=== PATIENT | male | born 1960 | race Caucasian/White ===

== ENCOUNTER 2024-11-30 00:49 | Emergency (ER) | payer MEDICAID, SELFPAY ==
[2024-11-30 00:49] VITALS: BP 170/95; PULSE 84; RESP 20; TEMP 36.9; O2SAT 97
--- NOTE | 2024-11-30 01:52 | EDNOTE_ITS ---
<Statement entered by Rachael Ng MD - 11/30/24 18:32> As co-signing physician, I was present and available for consult prn. I concur with the plan and care as documented by the midlevel provider. ED Animal Bite RME/HPI General Chief Complaint: Animal Bite Stated Complaint: Dog Bite 11/15 Time Seen by Provider: 11/30/24 01:48 Arrival date/time: 11/30/24 00:49 64M with history of homelessness and drug use presents to ED with dog bite on LLE from 11/15/24. Patient has not had a tetanus shot in the past 5 years. Limitations: no limitations Related Data Previous Rx's ?Medication ?Instructions ?Recorded amoxicillin 875 mg-potassium 1 tab PO BID 14 days #28 tabs 11/30/24 clavulanate 125 mg tablet Allergies Allergy/AdvReac Type Severity Reaction Status Date / Time No Known Allergies Allergy Verified 03/20/23 08:18 Review of Systems Review of Systems Systems Reviewed: All systems reviewed, normal except as documented Constitutional Constitutional: Reports system reviewed and no additional complaints, except as documented, Denies fever(s) and Denies headache(s) ENT Ears, Nose, Mouth, and Throat: Denies disequilibrium and Denies headache(s) Cardiovascular Cardiovascular: Reports system reviewed and no additional complaints, except as documented, Denies chest pain and Denies dyspnea Respiratory Respiratory: Reports system reviewed and no additional complaints, except as documented, Denies cough and Denies dyspnea Gastrointestinal Gastrointestinal: Reports system reviewed and no additional complaints, except as documented, Denies abdominal pain, Denies nausea and Denies vomiting Integumentary/Breasts Skin/Breast: Reports as per HPI and Reports skin pain Neurologic Neurologic: Reports system reviewed and no additional complaints, except as documented, Denies confusion, Denies disequilibrium and Denies headache(s) Psychiatric Psychiatric: Denies confusion Past Medical History Social History SMOKING STATUS: Never smoker ED Exam General Limitations: Present no limitations General appearance: Present alert and in no apparent distress Head Head exam: Present atraumatic Eye Eye exam: Present normal appearance, PERRL and EOMI ENT ENT exam: Present normal exam, normal oropharynx and mucous membranes moist Neck Neck exam: Present normal inspection, full ROM and trachea midline Chest Chest inspection: Present normal inspection and symmetric chest wall rise Respiratory Respiratory exam: Present normal lung sounds bilaterally Cardiovascular Cardiovascular exam: Present regular rate, normal rhythm and normal heart sounds Abdominal Exam Abdominal exam: Present soft and normal bowel sounds Extremities Exam Extremities exam: Present full ROM Expanded Lower Extremity Exam Lower leg exam: Present full ROM (L), tenderness, swelling and erythema Back Exam Back exam: Present normal inspection and full ROM Neurological Exam Neurological exam: Present alert, oriented X3 and CN II-XII intact Psychiatric Psychiatric exam: Present normal affect and normal mood Skin Skin exam: Present warm, dry, intact and normal color Course Quality Measures none Orders Category Date Time Status Amoxicillin/Pot Clav 875 [Augmentin 875] Med 11/30/24 01:48 Discontinued 1 tab PO X1 ONE TET,DIP/PERT AC (Adult)-Tdap [Boostrix Adult (Tdap) Med 11/30/24 01:48 Discontinued Vacc] 0.5 ml IMI .ONCE ONE Vital Signs Vital signs: Vital Signs Temperature 98.4 F 11/30/24 00:49 Pulse Rate 84 11/30/24 00:49 Respiratory Rate 20 11/30/24 00:49 Blood Pressure 170/95 H 11/30/24 00:49 Pulse Oximetry (%) 97 11/30/24 00:49 Oxygen Delivery Method Room Air 11/30/24 00:49 O2 at 97% on RA and WNLs Animal Bite MDM Narrative MDM Narrative:: 64M with history of homelessness and drug use presents to ED with dog bite on LLE from 11/15/24. Patient has not had a tetanus shot in the past 5 years. Physical exam reveals LLE redness, swelling, and tenderness. Patient is afebrile, calm, and alert. Meds given. Patient data External records reviewed:: [facility] previous records Clinical information provided by:: patient Social determinants that could affect healthcare access:: housing Patient has the following chronic illnesses:: homelessness and drug use How is presenting disease/condition affected by chronic disease/condition?: no chronic disease Evaluation data The following diagnostics were reviewed and interpreted by me:: other (specify) (none) Lab and/or radiology exams considered but not ordered:: not ordered Interpretation Summary: n/a Medications / Prescriptions Medications or Prescriptions considered but not ordered:: ordered Medication administrations:: Medication Administration History Discontinued Medications Amoxicillin/Clavulanate Potassium (Amoxicillin/Pot Clav 875 Tablet) 1 tab PO X1 ONE Stop: 11/30/24 01:49 Diphtheria/Tetanus/Acell Pertussis (Diphth,Pertuss(Acell),Tet Vac 0.5 Ml Syr- Adult) 0.5 ml IMi .ONCE ONE Stop: 11/30/24 01:49 above Consultations Consultation(s) initiated? (list below): No Diagnosis Differential diagnosis animal bite: bite by animal, dog bite, rabies contact and other (cellulitis) Most likely diagnosis given after review of the tests above:: cellulitis and dog bite Admission Indicated Admission indicated?: not indicated Admission Request Was there a request for admission?: No Disposition Plan Disposition Plan: Discharge Discharge Attestation Discharge Attestation: The patient and all family members were given an opportunity to ask questions and understood the discharge instructions. Discharge instructions specifically effects, indications for sooner follow up or return to the emergency department, and the expected course of current diagnosis. Patient condition: Stable Discharge Plan Plan Patient Disposition: HOME (Self Care) Discharge Disposition comment: Stable Prescriptions/Referrals Prescriptions/Med Rec: New amoxicillin-pot clavulanate 875-125 mg tablet 1 tab PO BID 14 Days Qty: 28 0RF Referrals: No Primary/Family,Physician [Primary Care Provider] - In 1 week Problem List Clinical Impression: Dog bite, Cellulitis Patient/Caregiver Discharge Instructions Education Materials: ED Cellulitis, ED Dog Bite Additional Instructions: Please follow-up with PCP within 24-48 hours and return immediately if symptoms worsen. Print Language: Italian Stand Alone Forms: Patient Portal Info Letter JOSE ANTONIO/DOTTIE Supervising Physician JOSE ANTONIO/DOTTIE Supervising Physician: Dr. Ng
[2024-11-30] MEDS: AMOXICILLIN/POT CLAV 875 TABLET 1 TAB PO (01:56)
[2024-11-30] MEDS: DIPHTH,PERTUSS(ACELL),TET VAC 0.5 ML SYR- ADULT IMi (01:56)
== END 2024-11-30 02:00 | disposition home or self-care (01) ==
PROVIDERS: Emergency Provider Emergency Medicine
DX: S81.852A Open bite, left lower leg, initial encounter (principal); L03.116 Cellulitis of left lower limb; W54.0XXA Bitten by dog, initial encounter; Z23 Encounter for immunization
CPT/HCPCS: 90471; 90715; 99282; A9270

== ENCOUNTER 2025-03-19 21:47 | Emergency (ER) | payer MEDICAID, SELFPAY ==
[2025-03-19 21:48] VITALS: BMI 31.6
[2025-03-19 22:29] VITALS: BP 175/99; PULSE 97; RESP 20; TEMP 36.7; O2SAT 95
--- NOTE | 2025-03-19 22:34 | XR_ITS ---
Examination: Foot, right, 3 views Technique: AP, oblique, lateral views foot, 3 views Date and time of exam: March 11, 2025 10:58 PM Indications: Redness swelling and pain involving the right foot this week Findings: Chronic subluxation second metatarsophalangeal joint Periosteal new bone formation at the bases of the second and third metatarsals Marked soft tissue swelling dorsum of the foot Pes planus Impression: Osteomyelitis bases of the second and third metatarsals Recommend MRI foot without contrast follow-up to assess full extent of osteomyelitis
--- NOTE | 2025-03-19 22:34 | XR_ITS ---
Examination: Duplex scan of the lower extremity, unilateral right Date and time of exam: March 19, 2025 11:13 PM Indications: Right foot swelling and discharge 2 days Technique: Duplex scan of the extremity veins using B-mode/grayscale imaging and Doppler spectral analysis and color flow Attention is directed to internal echogenicity, compression and augmentation involving these veins, color flow assessment, spectral analysis Findings: No flow visualized in the right posterior tibial vein, no diagnostic visualization of retroperitoneal or greater saphenous veins secondary to severe edema Impression: Limited study No flow noted in the right posterior tibial vein consistent with occlusive thrombus
--- NOTE | 2025-03-19 22:35 | PD.EDRME ---
Rapid Medical Screening Exam RME Arrival date/time: 03/19/25 21:47 This is a case of 65-year-old male who came into the emergency room due to right foot pain with blister and marked swelling tenderness on the right lower extremity is unable to walk worsening of the symptoms this patient decided to start consult here in the emergency room Chief Complaint: Extremity Problem,Nontraumatic Time Seen by Provider: 03/19/25 22:29 Vital signs: Vital Signs Temperature 98.1 F 03/19/25 22:29 Pulse Rate 97 03/19/25 22:29 Respiratory Rate 20 03/19/25 22:29 Blood Pressure 175/99 H 03/19/25 22:29 Pulse Oximetry (%) 95 03/19/25 22:29 Oxygen Delivery Method Room Air 03/19/25 22:29
--- NOTE | 2025-03-20 00:18 | XR_ITS ---
Examination: Arterial duplex lower extremity study, right lower extremity unilateral Date and time of exam: March 20, 2025, 0054 hrs. Indications: Right foot swelling and nonhealing blisters beginning 2 days ago Findings: Duplex sonographic imaging of the lower extremity arteries using B-mode/Lugo scale imaging and Doppler spectral analysis and color flow. Right common femoral artery demonstrates biphasic flow. Right superficial femoral artery demonstrates biphasic flow. Right popliteal artery demonstrates biphasic flow. Right posterior tibial artery demonstrated biphasic flow. Right dorsalis pedis artery demonstrated monophasic flow Impression: Suspicious for peripheral obstructive arterial disease, consider correlation with CTA abdominal aorta iliofemoral runoff follow-up post intravenous contrast
[2025-03-20 00:56] VITALS: BMI 31.6
[2025-03-20] MEDS: SODIUM CHLORIDE 0.9% 500 ML 500 ML 250 ML IV (01:00)
[2025-03-20] MEDS: ONDANSETRON INJ 2 MG/ML INJ 2 ML 4 MG IVP ×2 (01:05→02:37)
[2025-03-20] MEDS: MORPHINE SULF INJ 4 MG/ML VIAL IVP ×2 (01:05→02:37)
--- NOTE | 2025-03-20 01:16 | PD.EDEXREM ---
ED Extremity Problem RME/HPI General Chief complaint: Extremity Problem,Nontraumatic Stated complaint: BLISTERS AND SWELLING TO RIGHT FOOT Time Seen by Provider: 03/19/25 22:29 Arrival date/time: 03/19/25 21:47 RME / HPI RME / HPI Narrative: 03/19/25 21:47 This is a case of 65-year-old male who came into the emergency room due to right foot pain with blister and marked swelling tenderness on the right lower extremity is unable to walk worsening of the symptoms this patient decided to start consult here in the emergency room DR. REDDY MAIN ED EVALUATION: Progressive painful swelling extending from dorsum of right foot to level of the knee for 3 days duration. Reports progressive painful simulation and weakness involving right ankle of approximately 48 hours. There has been immergence of large bullae about the leg extending to the foot. No fever, no chills, no vomiting, or diarrhea. PMH: Negative for DM, HTN, Thyroid disease. PSH: Non-contributory. Social: Denies tobacco, alcohol, or illicit drug abuse. Related Data Allergies Allergy/AdvReac Type Severity Reaction Status Date / Time No Known Allergies Allergy Verified 03/20/23 08:18 Review of Systems Review of Systems Systems Reviewed: All systems reviewed, normal except as documented Past Medical History Social History SMOKING STATUS: Current every day smoker ED Exam Narrative Physical exam: GEN. APPEARANCE: The patient is alert awake oriented X-3 in no distress, but chronically ill-appearing. Patient has good eye contact. Patient is cooperative. C/o RLE pain and swelling. VITALS: All vitals were reviewed and the pulse ox is 95% on room air which is normal according to my interpretation. HEENT: Normocephalic, atraumatic. Pupils are equal and reactive. Oral mucosa is moist. Patent Nares NECK: Supple, nontender, no thyromegaly, no meningismus, no JVD, no step offs CHEST: Symmetrical, atraumatic, and with equal expansion , Nontender on palpation no deformity and no crepitus. CARDIOVASCULAR: Heart regular rhythm no murmur or gallop rub or extra beats. LUNGS: Clear to auscultation bilaterally with symmetrical chest rise. No laboring tachypnea or wheezing. No intercostal subcostal retraction. No rales and no rhonchi. ABDOMEN: Soft, flat, nontender to palpation, no guarding or rebound tenderness. There are no abnormal masses palpated. Active and normal bowel sounds. EXTREMITIES: See Below. SKIN: Warm and dry, no jaundice or rashes noted. MUSCULOSKELETAL: No lubar or midline bony tenderness. There is no CVA tenderness. No paraspinal muscle spasm or tenderness. NEURO: Patient is KONG x 4, Cranial nerves II through XII grossly intact. There is no focal neurologic deficits noted. GCS is 15, PNS and FLAG MAKER appear grossly intact. PSYCHIATRIC: Patient is in normal mood and affect, cooperative, no SI or HI or hallucinations. RLE: 3+ circumferential edema about the foot extending to the proximal leg, scattered bullae noted throughout, dorsalis pedis pulses intact, compartments of the leg are tense, patient has inability to flex and dorsiflex the foot, sensation grossly intact. Course Quality Measures none Orders Category Date Time Status Notify provider NOW Care 03/20/25 00:31 Active US arterial duplex LE RT Stat Exams 03/20/25 00:18 Taken US venous doppler LE RT Stat Exams 03/19/25 22:34 Completed XR chest 1V post procedure Stat Exams 03/20/25 03:18 Taken XR foot comp RT min 3V Stat Exams 03/19/25 22:34 Completed CBC Stat Lab 03/19/25 22:34 Completed CMP [Comprehensive Metabolic Panel] Stat Lab 03/19/25 22:34 Completed Partial Thromboplastin Time AM DRAW Lab 03/22/25 05:00 Ordered Partial Thromboplastin Time Q6H Lab 03/20/25 01:14 Completed Partial Thromboplastin Time Q6H Lab 03/20/25 06:45 Ordered Partial Thromboplastin Time Q6H Lab 03/20/25 12:45 Ordered Partial Thromboplastin Time Q6H Lab 03/20/25 18:45 Ordered Prothrombin Time with INR Stat Lab 03/20/25 01:14 Completed Heparin Inj Med 03/20/25 00:30 Discontinued 8,000 unit IV X1 ONE Heparin/D5w 25K 250 ML Ivpb [Heparin in D5w Ivpb] Med 03/20/25 00:30 Active 25,000 unit in 250 ml IV 18 mls/hr Morphine* Inj Med 03/20/25 00:20 Discontinued 4 mg IVP X1 ONE Morphine* Inj Med 03/20/25 02:25 Discontinued 4 mg IVP X1 ONE Ondansetron Inj [Zofran Inj] Med 03/20/25 00:20 Discontinued 4 mg IVP X1 ONE Ondansetron Inj [Zofran Inj] Med 03/20/25 02:25 Discontinued 4 mg IVP X1 ONE Piper/Tazo Inj [Zosyn Inj] 4.5 gm Med 03/20/25 01:14 Pending Sodium Chloride 0.9% (Pop) [NS 0.9% mini bag] 100 ml IV Q6HR Piper/Tazo Inj [Zosyn Inj] 4.5 gm Med 03/20/25 06:00 Active Sodium Chloride 0.9% (Pop) [NS 0.9% mini bag] 100 ml IV X1 Sodium Chloride 0.9% 500 ml [Ns] 500 ml Med 03/20/25 00:18 Discontinued IV 250 mls/hr Vancomycin Inj 1,500 mg Med 03/20/25 01:16 Active Sterile Water 30 ml Sodium Chloride 0.9% Vial [NS Vial] 20 ml Sodium Chloride 0.9% 250 ml [Ns] 250 ml IV X1 Vital Signs Vital signs: Vital Signs Temperature 98.1 F 03/19/25 22:29 Pulse Rate 97 03/19/25 22:29 Respiratory Rate 20 03/19/25 22:29 Blood Pressure 175/99 H 03/19/25 22:29 Pulse Oximetry (%) 95 03/19/25 22:29 Oxygen Delivery Method Room Air 03/19/25 22:29 Extremity Problem MDM Narrative MDM Narrative:: Scribe Attestation: Chiquita King am scribing for and in the presence of Dr. Reddy. Provider Notation: Although this document has been carefully reviewed, there may still be some phonetic and other typographical errors. These errors are purely grammatical due to imperfections in the software program and should not be construed in any way to compromise the substance of the patient's medical care during this visit. Progressive painful swelling extending from dorsum of right foot to level of the knee for 3 days duration. Reports progressive painful simulation and weakness involving right ankle of approximately 48 hours. Please see PE findings. Laboratory markers are currently pending. Underwent Doppler US which demonstrates venous occlusion of the right posterior tibial vein, additional veins difficult to assess due to severe interstitial edema. Arterial doppler demonstrated grade 1 flow at the level of the ankle/foot. Patient was anticoagulated. Routine x-rays of the foot obtained demonstrated osteomyelitis of the second and third metatarsal. Placed on furniture installer, IV was established, received IV imperic ABX, low-dose narcotic analgesics/anti-emetics. High clinical suspicion of compartment syndrome. Patient's symptoms have been ongoing for at least 48 hours. Peripheral pulses intact. Will likely refer to tertiary facility for consideration of fasciotomy. Patient data External records reviewed:: [facility] previous records (Reviewed prior ED records from 11/30/24. Patient was seen for Cellulitis.) Clinical information provided by:: patient Social determinants that could affect healthcare access:: none Patient has the following chronic illnesses:: None reported How is presenting disease/condition affected by chronic disease/condition?: no chronic disease Evaluation data The following diagnostics were reviewed and interpreted by me:: lab results and radiology exam(s) Lab and/or radiology exams considered but not ordered:: None Interpretation Summary: RADIOLOGY Foot X-Ray: Findings: Chronic subluxation second metatarsophalangeal joint Periosteal new bone formation at the bases of the second and third metatarsals Marked soft tissue swelling dorsum of the foot Pes planus Impression: Osteomyelitis bases of the second and third metatarsals Recommend MRI foot without contrast follow-up to assess full extent of osteomyelitis Venous Doppler Study: Findings: No flow visualized in the right posterior tibial vein, no diagnostic visualization of retroperitoneal or greater saphenous veins secondary to severe edema Impression: Limited study No flow noted in the right posterior tibial vein consistent with occlusive thrombu Duplex Scan Lower Extremity Artery: Pending official radiology report. Medications / Prescriptions Medications or Prescriptions considered but not ordered:: None Medication administrations:: Medication Administration History Heparin Sodium/Dextrose (Heparin In D5w Ivpb) 25,000 unit in 250 mls @ 18 mls/hr IV .[id number] KELLY; Protocol Stop: 04/03/25 00:29 Last Admin: 03/20/25 02:00 Dose: 16.53 units/kg/hr, 18 mls/hr Documented By: BD Co-signed By: DEBBIE Piperacillin Sod/Tazobactam (Sod 4.5 gm/ Sodium Chloride) 100 mls @ 200 mls/hr IV Q6HR KELLY; Protocol Stop: 03/27/25 01:13 Vancomycin HCl 1,500 mg/Sterile Water 30 ml/ Sodium Chloride 20 ml/ Sodium Chloride 300 mls @ 120 mls/hr IV X1 ONE Stop: 03/20/25 03:45 Piperacillin Sod/Tazobactam (Sod 4.5 gm/ Sodium Chloride) 100 mls @ 200 mls/hr IV X1 ONE; Protocol Stop: 03/20/25 06:29 Discontinued Medications Heparin Sodium (Porcine) (Heparin Sod Inj 5000 Unit/Ml Vial) 8,000 unit IV X1 ONE; Protocol Stop: 03/20/25 00:31 Last Admin: 03/20/25 01:58 Dose: 8,000 unit Documented By: BD Co-signed By: DEBBIE Sodium Chloride (Ns) 500 mls @ 250 mls/hr IV .Q2H ONE Stop: 03/20/25 02:17 Last Infusion: 03/20/25 02:36 Dose: Infused Documented By: Admin: 03/20/25 01:00 Dose: 250 mls/hr Documented By: LAMINE Morphine Sulfate (Morphine Sulf Inj 4 Mg/Ml Vial) 4 mg IVP X1 ONE Stop: 03/20/25 00:21 Last Admin: 03/20/25 01:05 Dose: 4 mg Documented By: LAMINE Morphine Sulfate (Morphine Sulf Inj 4 Mg/Ml Vial) 4 mg IVP X1 ONE Stop: 03/20/25 02:26 Last Admin: 03/20/25 02:37 Dose: 4 mg Documented By: DEBBIE Ondansetron HCl (Ondansetron Inj 2 Mg/Ml Inj 2 Ml) 4 mg IVP X1 ONE; Protocol Stop: 03/20/25 00:21 Last Admin: 03/20/25 01:05 Dose: 4 mg Documented By: LAMINE Ondansetron HCl (Ondansetron Inj 2 Mg/Ml Inj 2 Ml) 4 mg IVP X1 ONE; Protocol Stop: 03/20/25 02:26 Last Admin: 03/20/25 02:37 Dose: 4 mg Documented By: AC See above if any Consultations Consultation(s) initiated? (list below): Yes Consultation #1 (Physician, Specialty, Details): Discussed with [facility] for transfer and admission. Reviewed the patient?s HPI, PMHx, lab and/or radiology results. Discussed treatment plan. Will consult a transfer to general surgery/ortho. Time: 01:57 Consultation #2 (Physician, Specialty, Details): Discussed with [facility] for transfer and admission. Reviewed the patient?s HPI, PMHx, lab and/or radiology results. Discussed treatment plan. Will consult a transfer to the hospitalist. Time: 02:42 Consultation #3 (Physician, Specialty, Details): [facility] accepts patient for transfer. Time: 03:15 Diagnosis Extremity Problem Differential Diagnosis: herpes zoster, gout, cellulitis, superficial thrombophlebitis, lower extremity edema, deep vein thrombosis of lower extremity and other (compartment syndrome, necrotizing fasciitis) Most likely diagnosis given after review of the tests above:: Compartment syndrome, R/O Necrotizing fasciitis Admission Indicated Admission indicated?: not indicated Explain why admission is indicated or not indicated:: Pending transfer to tertiary facility. Admission Request Was there a request for admission?: No Disposition Plan Disposition Plan: Transfer Discharge Plan Plan Patient Disposition: [facility] Facility Pt Being Transferred to: [facility] Prescriptions/Referrals Referrals: No Primary/Family,Physician [Primary Care Provider] - In 1 week Problem List Clinical Impression: Compartment syndrome, Necrotizing fasciitis, DVT (deep venous thrombosis) Patient/Caregiver Discharge Instructions Print Language: Spanish Stand Alone Forms: Saniya Award Info., Patient Portal Info Letter
[2025-03-20 01:23] LABS: Basophils # (Auto) 0.1 Thou/mm3 (0.0-0.2); Basophils % (Auto) 0 % (0-2.5); Eosinophils # (Auto) 0.0 Thou/mm3 (0.0-0.5); Eosinophils % (Auto) 0 % (0-10); Hematocrit 51.2 % (41.0-53.0); Hemoglobin 16.8 g/dL (13.5-16.0); Immature Granulocytes Auto 0.14 Thou/mm3 (0.00-0.00); Lymphocytes # (Auto) 2.2 Thou/mm3 (1.0-4.8); Lymphocytes % (Auto) 9 % (10-50); Mean Corpuscular HGB Conc 32.8 g/dl (31.0-37.0); Mean Corpuscular Hemoglobin 29.5 pg (25.0-35.0); Mean Corpuscular Volume 90 fL (80-100); Monocytes # (Auto) 1.7 Thou/mm3 (0.0-0.8); Monocytes % (Auto) 7 % (0-12); Neutrophils # (Auto) 20.1 Thou/mm3 (1.8-7.7); Neutrophils % (Auto) 83 % (37-80); Nucleated Red Blood Cell # 0.00 Thou/mm3 (0.00-0.00); Nucleated Red Blood Cell % 0 /100 WBC (0); Platelet Count 186 Thou/mm3 (140-440); RDW Standard Deviation 46.4 fL (35.1-43.9); Red Blood Count 5.69 Miln/mm3 (4.50-5.90); White Blood Count 24.2 Thou/mm3 (3.8-10.6)
[2025-03-20 01:30] VITALS: BP 166/95; PULSE 98; RESP 16; TEMP 36.9; O2SAT 94
[2025-03-20 01:37] LABS: INR 1.2 (0.9-1.3); Partial Thromboplastin Time 27.8 Seconds (22.0-36.0); Prothrombin Time 12.9 Seconds (9.0-12.2)
[2025-03-20 01:43] LABS: Alanine Aminotransferase 184 U/L (10-49); Albumin, Serum 3.8 gm/dL (3.4-4.8); Albumin/Globulin Ratio 1.2 (1.2-2.2); Alkaline Phosphatase 79 U/L (46-116); Anion Gap 10 (7-16); Aspartate Amino Transferase 609 U/L (0-34); BUN/Creatinine Ratio 8 Ratio (12-20); Bilirubin,Total 1.3 mg/dL (0.3-1.2); Blood Urea Nitrogen 14 mg/dL (9-23); Calcium 9.2 mg/dL (8.3-10.6); Calcium (Corrected) 9.4 mg/dL (8.5-10.1); Carbon Dioxide 23.6 mMol/L (20.0-31.0); Chloride 101 mMol/L (98-107); Creatinine (Component) 1.8 mg/dL (0.6-1.3); Estimated Creatinine Clearance 55.1 mL/min (>60); Globulin 3.3 gm/dL (2.3-3.5); Glucose 142 mg/dL (74-106); Osmolality,Calculated 272 (275-295); Potassium 4.6 mMol/L (3.4-5.1); Sodium 135 mMol/L (136-145); Total Protein 7.1 gm/dL (5.7-8.2); eGFR 42 See Note
--- NOTE | 2025-03-20 01:57 | PRELIM_ITS ---
Right lower extremity arterial Doppler ultrasound with wave Doppler spectral analysis. March 20, 2025 0055 hours Clinical history: R/o vasc occlusion Comparison: None available at the time of this report. Findings: Lugo scale, color and spectral Doppler imaging of the right lower extremity arteries were performed. The common femoral, proximal, mid and distal (superficial) femoral and popliteal arteries are patent. No evidence of arterial occlusion or thrombus. The posterior tibial, anterior tibial and peroneal arteries are also unremarkable. Monophasic flow in the dorsalis pedis artery. The blood flow in all the other arterial vessels of the right lower extremity is biphasic. Impression: No hemodynamically significant stenosis in the right lower extremity arteries. Monophasic flow in the dorsalis pedis artery. The blood flow in all the other arterial vessels of the right lower extremity is biphasic. Report Electronically Signed By: Nitin Weinstein 03/20/2025 1:57:17 AM [EST]
[2025-03-20] MEDS: HEPARIN SOD INJ 5000 UNIT/ML VIAL 8000 UNIT IV (01:58)
[2025-03-20] MEDS: Heparin/D5w 25K 250 ML Ivpb 25,000 UNIT/250 ML BAG 18 UNIT IV (02:00)
--- NOTE | 2025-03-20 02:58 | PC.NURSE ---
DOCS AT BEDSIDE DOING CENTRAL LINE PLACEMENT
--- NOTE | 2025-03-20 03:18 | XR_ITS ---
Examination: AP chest single view Technique one AP portable semiupright chest single view Date and time: March 20, 2025, 0321 hrs., Comparison September 28, 2013 Indications: Post central line placement. Findings: Right internal jugular central line tip SVC satisfactory position Low enlargement cardiac contour with moderate vascular congestion Subsegmental atelectasis left base Impression: Right internal jugular central line tip SVC satisfactory position, no pneumothorax
--- NOTE | 2025-03-20 03:26 | PD.RESPROC ---
PROCEDURES: Procedure Date / Time 03/20/25 0326 Central Line Placement Right IJ: Indication(s): poor, or inadequate peripheral venous access and other Informed consent obtained: from patient Time out done, and the following verified: correct patient, side and site, procedure, patient position and implants and/or equipment Patient placed on monitor/pulse ox: Yes Hand Hygiene: scrub, soap & water and alcohol-based hand rub Max Sterile Barrier Techniques used: cap, mask, sterile gown, sterile gloves and sterile full body drape Central line prep: Povidone-Iodine 1%, Chlorhexidine scrub and sterile drapes applied Local anesthesia used: lidocaine 1% Amount of anesthesia used (mL): 10 Ultrasound used for placement: Yes Sterile Technique if Ultrasound used, including sterile gel: yes Central line lumen inserted: triple Post procedure: sutured in place, good blood return, all ports aspirated, flushed, capped and sterile dressing applied Post procedure x-ray: tip of catheter in good position and no pneumothorax seen Patient tolerated procedure: well EBL(ml): 5 Complications: none Procedure comment: After obtaining informed consent, the patient was positioned in the Trendelenburg position with the head turned slightly to the left to optimize exposure of the right internal jugular vein. The area was cleaned and prepped with sterile technique using chlorhexidine. Local anesthesia was administered with 1% lidocaine at the puncture site over the right internal jugular vein. Using an ultrasound-guided technique, the right internal jugular vein was identified, and a needle was advanced into the vein under real-time ultrasound visualization. A guidewire was then introduced into the vein, and the needle was removed. A small incision was made at the insertion site to facilitate placement of the central line. The triple lumen catheter was advanced over the guidewire into the vein, ensuring proper placement with gentle resistance and confirming its position via aspiration of blood from all lumens. After securing the catheter, it was sutured in place, and a sterile dressing was applied. The position of the catheter was confirmed with a chest X-ray, which showed the catheter tip in the superior vena cava.
[2025-03-20] MEDS: PIPER/TAZO INJ 4.5 GM in SODIUM CHLORIDE 0.9% (POP) 100 ML IV (03:42)
[2025-03-20 03:46] VITALS: BP 178/92; PULSE 128; RESP 24; TEMP 37.1; O2SAT 93
[2025-03-20] MEDS: CLINDAMYCIN 900MG IVPB 900 MG in PRE-MIXED 1 BAG 50 MG IV (03:51)
--- NOTE | 2025-03-20 03:57 | PC.NURSE ---
Right lower extremity swollen, red, discolored, 3+ pitting edema throughout. Pedal pulses present, confirmed both via doppler. Multiple large blisters throughout, most intact. Blood cultures drawn from central line before all IV Abx admin. Pt GCS 15, Alert. Stable.
[2025-03-20 04:04] VITALS: BP 147/100; PULSE 93; RESP 18; O2SAT 98
--- NOTE | 2025-03-20 04:11 | PC.NURSE ---
REPORT GIVEN TO BRO AT [facility]
== END 2025-03-20 04:22 | disposition short-term general hospital (02) ==
PROVIDERS: Nurse Practitioner Family; Emergency Provider Emergency Medicine
DX: M79.A21 Nontraumatic compartment syndrome of right lower extremity (principal); M72.6 Necrotizing fasciitis; I82.441 Acute embolism and thrombosis of right tibial vein; M86.9 Osteomyelitis, unspecified; Z75.1 Person awaiting admission to adequate facility elsewhere
CPT/HCPCS: 36556; 36415; 73630; 80053; 85025; 85610; 85730; 87040; 93926; 93971; 96361; 96365; 96375; 96376; 99284; J0736; J1644; J2270; J2405; J2543; J7999